=== PATIENT | female | born 1985 | race Native Hawaiian/Other Pacific Islander ===

== ENCOUNTER 2020-01-20 03:58 | Outpatient (CLI) | payer OTHER ==
[2020-01-20 04:28] VITALS: BP 123/76
[2020-01-20] MEDS ORDERED: TERBUTALINE 1 MG/ML VIAL SUBQ ONE (04:53)
[2020-01-20 05:17] LABS: BILIRUBIN,URINE NEGATIVE (NEGATIVE); GLUCOSE, URINE (UA) NEGATIVE (NEGATIVE); KETONES,URINE (UA) NEGATIVE (NEGATIVE); LEUKOCYTE ESTERASE, URINE NEGATIVE (NEGATIVE); NITRITE,URINE NEGATIVE (NEGATIVE); OCCULT BLOOD,URINE NEGATIVE (NEGATIVE); PROTEIN,URINE NEGATIVE (NEGATIVE); UROBILINOGEN,URINE 0.2 (NORMAL) E.U./dL (NORMAL)
[2020-01-20 05:18] LABS: CLARITY,URINE CLEAR (CLEAR)
[2020-01-20] MEDS ORDERED: BETAMETHASONE 30 MG/5 ML VIAL IM ONE (05:59)
[2020-01-20] MEDS ORDERED: TERBUTALINE 2.5 MG TABLET PO ONE (07:00)
--- NOTE | 2020-01-20 11:21 | PREOP HISTORY & PHYSICAL ---
DATE OF SERVICE: 01/20/2020 Physician: Edwin Angel MD IDENTIFICATION: Patient is a 34-year-old. She is 4, para 2, and ectopic 1. She is currently due 02/22/2019. This was confirmed by LMP as well as ultrasound at 20 weeks. This makes her 35 weeks and 1 day. CHIEF COMPLAINT: Contraction. HISTORY OF PRESENT ILLNESS: Patient developed contractions at roughly 2 o'clock this morning. She called the answering service and presented here at 4 o'clock. She has a history of having had a delivery at 36 weeks in the past. She has also had a section with her next child for breech presentation. She denies spontaneous rupture of membranes. She has not had any intercourse for the last greater than 24 hours. She denies any trauma or any other conditions at this time. OB history positive for an abnormal 50 gram Glucola but a normal 3-hour GTT. A- positive, antibody screen negative. She has tested negative for all STIs. She is rubella immune. PAST MEDICAL HISTORY: Patient denies any hypertensive, diabetic, or cardiac disease. SURGICAL HISTORY: Positive for a section as well as an ectopic . ALLERGIES: NONE KNOWN. CURRENT MEDICATIONS: vitamins. HABITS: Patient denies use of alcohol, tobacco, or street or addictive drugs. SOCIAL HISTORY: The patient is and is active duty [employer]. FAMILY HISTORY: Positive for cancer in maternal grandmother, heart attack in maternal grandfather, and a CVA in maternal grandfather. PHYSICAL EXAMINATION GENERAL: Patient is a well-developed, well-nourished [place] female. She is in no acute distress. She has noted contractions but was not breathing through them at all at this time. VITAL SIGNS: Noted to be normal. HEENT/NECK: Pupils are equal and round. Extraocular muscles are intact. Thyroid is not palpably enlarged. HEART: Regular rate and rhythm without murmurs. LUNGS: Lung dobbins are clear without rales or wheezes. ABDOMEN: 36 cm in fundal height. PELVIC: The exam performed by the nurse shows the external os to be 2 cm but the internal os is closed. She is about 50% effaced. She has a well-healed Pfannenstiel incision. LABORATORY DATA: Her FFN is positive; however, her urine is negative. IMPRESSION 1. A 34-year-old G4, P2 female, previous section at 35 weeks and 1 day. 2. contractions. PLAN: Patient was administered subcutaneous terbutaline at 0.25 mg, and this appeared to cause her contractions to cease. Because of her gestational age and contractions with a history of delivery, we administered 12 mg of betamethasone. I have also written a prescription for terbutaline at 2.5 mg p.o. every 6 hours p.r.n. She has an appointment to see us on 02/01/2020; however, we will have her call and try and make an appointment sooner because of her complications. The patient has been cautioned that, should the contractions return with strength, she should return early. She is also informed because of her gestational age that most likely she would need to be transferred to the [facility] in [place], [place], for NICU capabilities. TD: 01/20/2020 07:08 EWA
[2020-01-21] MEDS ORDERED: BETAMETHASONE 30 MG/5 ML VIAL IM ONE (09:00)
== END 2020-01-20 07:12 | disposition home or self-care (01) ==
LOC: WFO 03:58 → FBP 04:02 → WFO 07:12
PROVIDERS: ATTEND Obstetrics & Gynecology
DX: O47.1 False labor at or after 37 completed weeks of gestation (principal); Z3A.35 35 weeks gestation of pregnancy
CPT/HCPCS: 81003; 82731; 96372; 99214; A9270; 59025; 81001; 87086

== ENCOUNTER 2020-01-21 09:22 | Outpatient (CLI) | payer OTHER ==
[2020-01-21] MEDS ORDERED: BETAMETHASONE 30 MG/5 ML VIAL IM ONE (09:39)
[2020-01-21 10:13] VITALS: BP 128/71
--- NOTE | 2020-02-06 12:11 | PROVIDER PROGRESS NOTE ---
- HPI Chief Complaint: Labor Current : Current EDU 02/23/20 Gestation 35 Weeks and 2 Days Vital Signs Temperature 36.5 C 01/21/20 10:11 Heart Rate 87 01/21/20 10:11 Respiratory Rate 18 01/21/20 10:11 Blood Pressure 128/71 01/21/20 10:11 Temperature 36.5 C 01/21/20 10:11 Heart Rate 87 01/21/20 10:11 Respiratory Rate 18 01/21/20 10:11 Blood Pressure 128/71 01/21/20 10:11 O2 Saturation - Procedures NST Procedure: NST Procedure Start Date 01/21/20 Start Time 09:37 Stop Time 10:14 Vibroacoustic Stimulation Used No Patient States Movement Yes Findings: 35 WEEKS, 2 DAYS CONTRACTIONS PRIOR C/S - Plan Plan: PT RECEIVED SECOND DOSE OF BETAMETHAZONE FOR LUNG MATURITY
== END 2020-01-21 10:40 | disposition home or self-care (01) ==
LOC: WFO 09:22 → FBP 09:25 → WFO 10:40
PROVIDERS: ATTEND Obstetrics & Gynecology
DX: O60.03 Preterm labor without delivery, third trimester (principal); Z3A.35 35 weeks gestation of pregnancy
CPT/HCPCS: 96372; 99212

== ENCOUNTER 2020-01-24 22:43 | Inpatient (IN) | payer OTHER ==
[2020-01-25] MEDS ORDERED: ceFAZolin 2 GM in SODIUM CHLORIDE 0.9% 100ML 100 ML IV ONE (00:07)
[2020-01-25] MEDS ORDERED: CITRIC ACID/SODIUM CITRATE 15 ML UDC PO ONE (00:10)
[2020-01-25] MEDS: LACTATED RINGERS 1,000 ML IV SCH ×2 (00:15→06:35)
--- NOTE | 2020-01-25 00:39 | ANESTHESIA ---
Pre-Anesthesia VS, & Labs - Diagnosis active labor, previous c/s - Procedure repeat c/s Vital Signs: Temp Pulse Resp BP Pulse Ox 37.5 C 103 H 18 128/87 H 99 01/25/20 00:14 01/25/20 00:14 01/25/20 00:14 01/25/20 00:14 01/24/20 23:02 Height 5 ft 2 in Weight (kg) 71.214 kg - NPO Other (2129) - Is Patient ?: Yes Home Medications and Allergies Active Medications Lactated Ringer's (Lr) 1,000 mls @ 125 mls/hr IV .Q8H DEVEN Last Admin: 01/25/20 00:15 Dose: 125 mls/hr Documented by: PNV, AZO Allergies/Adverse Reactions: Allergies Allergy/AdvReac Type Severity Reaction Status Date / Time No Known Drug Allergies Allergy Verified 01/20/20 06:15 Anes History & Medical History - Anesthetic History Anesthesia Complications: reports: No previous complications - Medical History Cardiovascular: reports: None Pulmonary: reports: None Gastrointestinal: reports: None Urinary: reports: None Neuro: reports: None Musculoskeletal: reports: None Endocrine/Autoimmune: reports: None Blood Disorders: reports: None Skin: reports: None Smoking Status: Former smoker Psychosocial: reports: No issues indicated - Surgical History Gynecologic: section, Other (Ectopic , s/p salpingectomy) Exam General: Alert, Oriented x3, Cooperative, No acute distress Dental: WNL Mouth Openin Fingerbreadth Neck Mobility: Normal Mallampati classification: II Mental/Cognitive Status: Alert/Oriented X3, Normal for patient Plan Anesthesia Type: Spinal Consent for Procedure(s) Verified and Reviewed: Yes Code Status: Attempt Resuscitation ASA classification: 2-Mild systemic disease Is this case an emergency?: Yes
[2020-01-25] MEDS ORDERED: ONDANSETRON 4 MG/2 ML VIAL IVP ONE (00:50)
[2020-01-25] MEDS ORDERED: KETOROLAC 30 MG/ML VIAL IVP ONE (00:50)
[2020-01-25] MEDS ORDERED: METHYLERGONOVINE 0.2 MG/ML VIAL ONE (00:54)
[2020-01-25] MEDS ORDERED: CARBOPROST TROMETHAMINE 250 MCG/ML AMP IM ONE (00:54)
[2020-01-25 01:41] LABS: BASOPHILS % (AUTO) 0.6 %; EOSINOPHILS % (AUTO) 2.6 %; HGB - HEMOGLOBIN 12.7 g/dL (12.0-16.0); MEAN CORPUSCULAR HEMOGLOBIN 27.5 pg (27.0-31.0); MEAN CORPUSCULAR VOLUME 85.9 fL (81.0-99.0); MEAN PLATELET VOLUME 10.6 fL (7.9-10.8); NEUTROPHILS % (AUTO) 51.7 %; PLT - PLATELET COUNT 191 10^3/uL (130-450); RED BLOOD COUNT 4.62 10^6/uL (4.20-5.40); RED CELL DISTRIBUTION WIDTH 14.6 % (12.0-15.0); WHITE BLOOD COUNT 11.9 x10^3/uL (4.8-10.8)
[2020-01-25 01:43] LABS: ABNORMAL LYMPHS % (MANUAL) 0 %; BAND NEUTROPHILS % (MANUAL) 0 %
[2020-01-25 01:45] LABS: EOSINOPHILS # (MANUAL) 0.2 10^3/uL (0-0.7); LYMPHOCYTES # (MANUAL) 4.5 10^3/uL (1.5-3.5); LYMPHOCYTES % (MANUAL) 38 %; MONOCYTES # (MANUAL) 1.2 10^3/uL (0.0-1.0); MYELOCYTES % (MANUAL) 7 %
[2020-01-25 01:46] LABS: DIFFERENTIAL COMMENT MANUAL DIFFERENTIAL; PLATELET ESTIMATE, MANUAL NORMAL (130-450,000) (NORMAL); RBC MORPHOLOGY (MULTIPLE) NORMAL APPEARANCE (NORMAL)
[2020-01-25] MEDS ORDERED: BUPIVACAINE 0.25%-EPI 1:200000 PF 30 ML VIAL ONE (02:02)
[2020-01-25] MEDS ORDERED: LACTATED RINGERS 1,000 ML IV ONE (02:28)
[2020-01-25] MEDS ORDERED: BUPIVACAINE 0.25%-EPI 1:200000 PF 30 ML VIAL SUBQ ONE (02:29)
[2020-01-25] MEDS ORDERED: SODIUM CHLORIDE FLUSH 0.9% 10 ML SYRINGE IVP PRN (02:30)
[2020-01-25] MEDS ORDERED: ONDANSETRON 4 MG/2 ML VIAL IVP PRN ×3 (02:30→03:46)
[2020-01-25] MEDS ORDERED: diphenhydrAMINE 25 MG CAPSULE PO PRN (02:30)
--- NOTE | 2020-01-25 02:36 | OPERATIVE REPORT ---
Operative Report - General Admit Date: 01/25/20 Procedure Date: 01/25/20 Planned Procedure: RLTC/S Pre-Op Diagnosis: 35 6/7 weeks, prior C/S Active labor Procedure Performed: RLTC/S - Procedure Note Primary Surgeon: Edwin Angel MD Secondary Surgeon: Paty ROJAS Anesthesia Provider: Mil Haddad CRNA Anesthesia Technique: Local, Spinal Pathology: Placenta IV Fluids (mL): 1,000 Estimated Blood Loss (mL): 700 Urine Output (mL): 100 Complications: none
[2020-01-25] MEDS ORDERED: MORPHINE 2 MG/ML CARPUJECT IVP PRN ×2 (02:37→03:53)
[2020-01-25] MEDS ORDERED: ATROPINE ABBOJECT 1 MG/10 ML SYRINGE IVP PRN (02:37)
[2020-01-25] MEDS ORDERED: HYDROmorphone 0.5 MG/0.5 ML SYRINGE IVP PRN (02:37)
[2020-01-25] MEDS ORDERED: fentaNYL 100 MCG/2 ML VIAL IVP PRN (02:37)
[2020-01-25] MEDS ORDERED: NALOXONE 0.4 MG/ML VIAL IVP PRN (02:37)
--- NOTE | 2020-01-25 02:37 | ANESTHESIA POST OP EVALUATION ---
Anesthesia Post Eval - Post Anesthesia Eval Vitals: Last Vital Signs Temp 37.5 C 01/25/20 00:14 Pulse 103 H 01/25/20 00:14 Resp 18 01/25/20 00:14 BP 128/87 H 01/25/20 00:14 Pulse Ox 99 01/24/20 23:02 CV Function Including HR & BP: positive: Stable Pain Control: positive: Satisfactory Nausea & Vomiting: positive: Negative Mental Status: positive: Baseline Respiratory Status: Airway Patent Hydration Status: Satisfactory Anesthesia Complications: positive: None
[2020-01-25] MEDS ORDERED: LACTATED RINGERS 1,000 ML IV SCH ×2 (03:00)
[2020-01-25] MEDS ORDERED: NALBUPHINE 10 MG/ML AMP IVP PRN (03:47)
[2020-01-25 05:58] LABS: BASOPHILS # (AUTO) 0.1 10^3/uL (0.0-0.1); BASOPHILS % (AUTO) 0.5 %; EOSINOPHILS # (AUTO) 0.3 10^3/uL (0.0-0.7); EOSINOPHILS % (AUTO) 1.9 %; HGB - HEMOGLOBIN 11.1 g/dL (12.0-16.0); LYMPHOCYTES # (AUTO) 2.8 10^3/uL (1.5-3.5); LYMPHOCYTES % (AUTO) 15.7 %; MEAN CORPUSCULAR HEMOGLOBIN 28.2 pg (27.0-31.0); MEAN CORPUSCULAR HGB CONC 32.5 g/dL (32.0-36.0); MEAN CORPUSCULAR VOLUME 86.8 fL (81.0-99.0); MEAN PLATELET VOLUME 10.4 fL (7.9-10.8); MONOCYTES # (AUTO) 1.3 10^3/uL (0.0-1.0); MONOCYTES % (AUTO) 7.3 %; NEUTROPHILS # (AUTO) 12.9 10^3/uL (1.5-6.6); NEUTROPHILS % (AUTO) 72.5 %; PLT - PLATELET COUNT 158 10^3/uL (130-450); RED BLOOD COUNT 3.94 10^6/uL (4.20-5.40); RED CELL DISTRIBUTION WIDTH 14.6 % (12.0-15.0); WHITE BLOOD COUNT 17.8 x10^3/uL (4.8-10.8)
--- NOTE | 2020-01-25 06:47 | OPERATIVE REPORT ---
DATE OF SERVICE: 01/25/2020 Physician: Edwin Angel MD PREOPERATIVE DIAGNOSES 1. 35 weeks 6 days. 2. Previous section. 3. Active labor. POSTOPERATIVE DIAGNOSES 1. 35 weeks 6 days. 2. Previous section. 3. Active labor. PROCEDURE PERFORMED: Repeat low transverse section. SURGEON: Edwin Angel MD. CLINIC PHYSICIAN DIRECTOR: PRICILA Jc. ANESTHESIA PROVIDER: Cheryl Cross CRNA. ANESTHETIC: Spinal with local. IV FLUIDS: 1000 mL ESTIMATED BLOOD LOSS: 700 mL URINE OUTPUT: 100 mL FINDINGS: Upon entering the abdominal cavity, a live male infant with Apgars 8 and 9 was encountered in vertex presentation. The amniotic fluids were clear. PROCEDURE: Following adequate spinal anesthesia, patient was placed in the supine position with a roll under the right hip. Morales catheter was placed under sterile conditions. At this point, she was prepped and draped in the usual fashion. A timeout was done at this time in which concerns were addressed. The patient had a previous vertical incision, which was low in nature. A Pfannenstiel incision was accomplished using a #10 blade and electrocautery. The fascia was incised transversely and then spread laterally with the Willis scissors. At this point, the fascia was bluntly and sharply dissected from the rectus abdominis in the midline. The peritoneum was entered high. Care was taken to avoid any injury to bowel or bladder. At this point, a bladder flap was developed using the Metzenbaum scissors and blunt dissection. A low transverse uterine incision was accomplished using a #10 blade, bandage scissors and finger spread technique. The head of the was lifted out of the pelvis. Clear amniotic fluid was encountered. The infant was delivered without difficulty. The oral and nasopharynx were bulb suctioned. The cord was doubly clamped and divided, and the infant was handed to the harness tier who was standing by. At this point, the uterus was exteriorized. The lower portion of the incision was grasped with ring forceps and the placenta was manually delivered. This was sent for pathologic evaluation. The internal portion of the uterus was cleansed with a moist lap. The incision was closed using running locking suture of 0 Vicryl with an imbricating layer of 0 Vicryl. The cul-de-sac was suctioned of any clot and estimated blood count was made at that time. At this point, the pelvis was irrigated and no further blood was noted in the cul-de-sac. The uterus was delivered back in abdominal cavity. The gutters were irrigated bilaterally. The wound was inspected. There is no evidence of any bleeding. The peritoneum was closed using 2-0 Vicryl and the rectus was reapproximated with 0 Vicryl. The incision itself closed using looped PDS and the subcutaneous tissue was closed utilizing 2-0 Vicryl. The incision itself was closed using 4- 0 Monocryl. A wound VAC was then placed without difficulty and the uterus was expressed. During this procedure, business objects consultant Anna Friend was instrumental in providing retraction, suture cutting as well as fundal pressure to deliver the . TD: 01/25/2020 02:46 EWA
[2020-01-25] MEDS: ACETAMINOPHEN 500 MG TABLET PO SCH ×2 (08:05→16:33)
[2020-01-25] MEDS: DOCUSATE SODIUM 100 MG CAPSULE PO SCH ×2 (08:05→19:54)
[2020-01-25] MEDS: SIMETHICONE CHEW 80 MG TABLET PO SCH ×3 (08:05→19:54)
[2020-01-25] MEDS: KETOROLAC 30 MG/ML VIAL IVP SCH ×2 (08:05→13:56)
--- NOTE | 2020-01-25 08:40 | PROVIDER PROGRESS NOTE ---
Subjective - General Admit Date: 01/25/20 Procedure Date: 01/25/20 Post Op Days: 0 Procedure Performed: RLTC?S - Review of Systems Wound/Incisions: positive: Dressing dry and intact General: positive: No symptoms (Pain 7/10, moving easly coversing in full sentences. states she has good pain control.) HEENT: positive: No symptoms Pulmonary: positive: No symptoms Cardiovascular: positive: No symptoms Gastrointestinal: negative: Flatus Objective - Patient Data Reviewed Vital Signs: Yes Vital Signs: Vital Signs x48h Temp Pulse Pulse Resp BP BP Pulse Ox 01/25/20 07:26 37 C 81 20 103/49 L 98 01/25/20 06:38 68 16 104/52 L 97 01/25/20 05:29 37.2 C 86 16 97/51 L 98 01/25/20 04:50 36.8 C 77 16 98/49 L 97 01/25/20 04:20 73 16 105/58 L 97 01/25/20 03:45 79 16 118/64 97 01/25/20 03:30 73 16 114/75 99 01/25/20 03:15 83 16 108/63 98 01/25/20 03:00 36.7 C 78 16 114/56 L 98 01/25/20 02:50 37 C 74 19 125/71 100 01/25/20 02:37 37.6 C H 82 19 123/62 100 01/25/20 02:32 37.6 C H 75 23 116/66 99 01/25/20 02:27 37.5 C 79 18 116/82 H 99 01/25/20 02:22 37.5 C 85 12 130/59 L 100 Weight: Weight 01/23/20 01/24/20 01/25/20 23:59 23:59 23:59 Weight (kg) 71.486 kg 71.214 kg Intake & Output: Intake and Output Totals x24h 01/23/20 01/24/20 01/25/20 23:59 23:59 23:59 Intake Total 791.667 Output Total 195 Balance 596.667 - Lab Results Lab Results: 01/25/20 05:50 Other Lab Results: Lab Results x24hrs 01/25/20 01/25/20 01/25/20 Range/Units 23:45 05:50 00:30 WBC Cancelled 17.8 H (4.8-10.8) x10^3/uL Corrected WBC Cancelled RBC Cancelled 3.94 L (4.20-5.40) 10^6/uL Hgb Cancelled 11.1 L (12.0-16.0) g/dL Hct Cancelled 34.2 L (37.0-47.0) % MCV Cancelled 86.8 (81.0-99.0) fL MCH Cancelled 28.2 (27.0-31.0) pg MCHC Cancelled 32.5 (32.0-36.0) g/dL RDW Cancelled 14.6 (12.0-15.0) % Plt Count Cancelled 158 (130-450) 10^3/uL MPV Cancelled 10.4 (7.9-10.8) fL Neut # (Auto) Cancelled 12.9 H Lymph # (Auto) Cancelled 2.8 [place] # (Auto) Cancelled 1.3 H Eos # (Auto) Cancelled 0.3 Baso # (Auto) Cancelled 0.1 Absolute Nucleated RBC Cancelled 0.00 Total Counted Cancelled Band Neuts % (Manual) Cancelled (0 - 10) % Reactive Lymphs % (Man) Cancelled Abnorm Lymph % (Manual) Cancelled % Metamyelocytes % Cancelled Myelocytes % Cancelled ( - 0) % Promyelocytes % Cancelled Blast Cells % Cancelled Plasma Cell % (Manual) Cancelled Other Cells % Cancelled Nucleated RBC % Cancelled 0.0 Neutrophils # (Manual) Cancelled (1.5-6.6) 10^3/uL Lymphocytes # (Manual) Cancelled (1.5-3.5) 10^3/uL Monocytes # (Manual) Cancelled (0.0-1.0) 10^3/uL Eosinophils # (Manual) Cancelled (0-0.7) 10^3/uL Basophils # (Manual) Cancelled (0-0.1) 10^3/uL Nucleated RBCs Cancelled Differential Comment Cancelled Manual Slide Review Cancelled WBC Morphology Cancelled Platelet Estimate Cancelled (NORMAL) Platelet Morphology Cancelled RBC Morph Micro Appear Cancelled (NORMAL) Slides for Path Review Cancelled Blood Type A POSITIVE Blood Type Recheck Antibody Screen NEGATIVE 08/20/20 08/20/20 Range/Units 23:45 23:45 WBC 11.9 H (4.8-10.8) x10^3/uL Corrected WBC RBC 4.62 (4.20-5.40) 10^6/uL Hgb 12.7 (12.0-16.0) g/dL Hct 39.7 (37.0-47.0) % MCV 85.9 (81.0-99.0) fL MCH 27.5 (27.0-31.0) pg MCHC 32.0 (32.0-36.0) g/dL RDW 14.6 (12.0-15.0) % Plt Count 191 (130-450) 10^3/uL MPV 10.6 (7.9-10.8) fL Neut # (Auto) Not Reportable Lymph # (Auto) Not Reportable [place] # (Auto) Not Reportable Eos # (Auto) Not Reportable Baso # (Auto) Not Reportable Absolute Nucleated RBC Not Reportable Total Counted 100 Band Neuts % (Manual) 0 (0 - 10) % Reactive Lymphs % (Man) Abnorm Lymph % (Manual) 0 % Metamyelocytes % Myelocytes % 7 H ( - 0) % Promyelocytes % Blast Cells % Plasma Cell % (Manual) Other Cells % Nucleated RBC % Not Reportable Neutrophils # (Manual) 5.1 (1.5-6.6) 10^3/uL Lymphocytes # (Manual) 4.5 H (1.5-3.5) 10^3/uL Monocytes # (Manual) 1.2 H (0.0-1.0) 10^3/uL Eosinophils # (Manual) 0.2 (0-0.7) 10^3/uL Basophils # (Manual) 0.0 (0-0.1) 10^3/uL Nucleated RBCs Differential Comment MANUAL DIFFERENTIAL Manual Slide Review WBC Morphology Platelet Estimate NORMAL (130-450,000) (NORMAL) Platelet Morphology RBC Morph Micro Appear NORMAL APPEARANCE (NORMAL) Slides for Path Review Blood Type Blood Type Recheck A POSITIVE Antibody Screen - Current Medications Current Medications: Current Medications Generic Name Dose Route Start Last Admin Trade Name Freq PRN Reason Stop Dose Admin Acetaminophen 1,000 mg 01/25/20 03:00 01/25/20 08:05 Tylenol PO 1,000 mg Q8H DEVEN Administration Docusate Sodium 100 mg 01/25/20 09:00 01/25/20 08:05 Colace 100mg Capsule PO 100 mg BID DEVEN Administration Hydromorphone HCl 0.2 - 0.6 mg 01/25/20 02:37 01/25/20 05:17 Dilaudid Inj Syringe IVP 01/26/20 02:37 0.5 mg Q5M PRN Administration PAIN ([facility] Choice) Lactated Ringer's 1,000 mls @ 125 mls/hr 01/24/20 23:35 01/25/20 06:35 Lr IV 125 mls/hr .Q8H DEVEN Administration Ketorolac Tromethamine 30 mg 01/25/20 03:00 01/25/20 08:05 Toradol Inj (30mg) IVP 01/25/20 21:01 30 mg Q6H DEVEN Administration Simethicone 80 mg 01/25/20 06:00 01/25/20 08:05 Mylicon PO 80 mg TID DEVEN Administration - Physical Exam Wound/Incisions: positive: Dressing dry and intact General Appearance: positive: No acute distress, Alert Respiratory: positive: Chest non-tender, No respiratory distress, Breath sounds nml Cardiovascular: positive: Regular rate & rhythm, No murmur, No gallop Abdomen: positive: Non-tender Back: negative: CVA tenderness (R), CVA tenderness (L) Skin: positive: Color nml, No rash, Warm, Dry Impression/Plan - Problem List Problem List: POD#0 Good pain control wang Chambers to see me in my absence
[2020-01-25] MEDS ORDERED: SODIUM CHLORIDE FLUSH 0.9% 10 ML SYRINGE IVP SCH (09:00)
[2020-01-25] MEDS: oxyCODONE 5 MG TABLET PO PRN (10:15)
[2020-01-25] MEDS ORDERED: KETOROLAC 30 MG/ML VIAL IVP SCH (20:00)
[2020-01-26] MEDS: ACETAMINOPHEN 500 MG TABLET PO SCH ×3 (00:10→20:14)
[2020-01-26] MEDS: IBUPROFEN 600 MG TABLET PO SCH ×4 (01:53→20:15)
[2020-01-26] MEDS: DOCUSATE SODIUM 100 MG CAPSULE PO SCH ×2 (08:41→20:15)
[2020-01-26] MEDS: oxyCODONE 5 MG TABLET PO PRN (08:51)
--- NOTE | 2020-01-26 12:01 | PROVIDER PROGRESS NOTE ---
Subjective - Prog Note Date Prog Note Date: 01/26/20 Prog Note Time: 11:58 - Subjective Subjective: Patient is up and ambulating, tolerating po, and voiding. Pain is well managed with pain medications. Bf going well. Experienced mother. Objective - Vital Signs/Intake & Output Vital Signs: Vital Signs x48h Temp Pulse Resp BP Pulse Ox 01/26/20 08:00 98.1 F 98 18 97/70 98 Intake & Output: Intake & Output 01/23/20 01/24/20 01/25/20 01/26/20 23:59 23:59 23:59 23:59 Intake Total 1633.334 Output Total 1495 Balance 138.334 - Objective General Appearance: positive: No acute distress Neck: positive: Nml inspection Respiratory: positive: No respiratory distress Cardiovascular: positive: Regular rate & rhythm Abdomen: positive: Non-tender, Other (FF below umbi. Wound Vac in place) Back: positive: Nml inspection Skin: positive: Color nml Extremities: positive: Non-tender Neurologic/Psychiatric: positive: Oriented x3 - Lab Results Fish Bones: 01/25/20 05:50 Assessment/Plan - Problem List (1) deliv NOS-unsp Impression: POD#1 s/p rLTCS: Doing well post op Routine pp care Rh positive Anticipate DC home in am pending clearance of infant
[2020-01-26] MEDS: SIMETHICONE CHEW 80 MG TABLET PO SCH (20:14)
[2020-01-27] MEDS: ACETAMINOPHEN 500 MG TABLET PO SCH ×2 (04:37→12:36)
[2020-01-27] MEDS: IBUPROFEN 600 MG TABLET PO SCH ×2 (04:38→10:50)
[2020-01-27 05:51] LABS: HGB - HEMOGLOBIN 11.6 g/dL (12.0-16.0); MEAN CORPUSCULAR HEMOGLOBIN 28.4 pg (27.0-31.0); MEAN CORPUSCULAR HGB CONC 32.5 g/dL (32.0-36.0); MEAN CORPUSCULAR VOLUME 87.5 fL (81.0-99.0); MEAN PLATELET VOLUME 9.9 fL (7.9-10.8); RED BLOOD COUNT 4.08 10^6/uL (4.20-5.40); RED CELL DISTRIBUTION WIDTH 14.6 % (12.0-15.0); WHITE BLOOD COUNT 13.7 x10^3/uL (4.8-10.8)
[2020-01-27 08:04] VITALS: BP 114/80
[2020-01-27] MEDS: SIMETHICONE CHEW 80 MG TABLET PO SCH (08:50)
[2020-01-27] MEDS: DOCUSATE SODIUM 100 MG CAPSULE PO SCH (08:50)
[2020-01-27] MEDS: oxyCODONE 5 MG TABLET PO PRN (10:49)
--- NOTE | 2020-01-27 11:40 | Discharge Plan ---
Discharge Plan Problem Reviewed?: Yes Disposition: 01 Home, Self Care Diet: Regular Activity Restrictions: Additional Comments (Nothing in the vagina for 6 weeks: No intercourse, tampons, douching Call for: -Fever greater than 100.5 - Pain that does not improve with pain medication -Heavy bleeding in which you are soaking a pad an hour for 2 hours in a row - If incision becomes hot, hard, red, starts to open) Shower Restrictions: No (OK to shower but no tub baths, swimming, or hot tubs for 4 weeks) Driving Restrictions: Yes (No driving while taking narcotics. ) No Smoking: If you smoke, Please STOP! Call for help. Follow-up with: Edwin Angel MD [Provider Admit Priv/Credential] -
--- NOTE | 2020-01-27 11:51 | PROVIDER PROGRESS NOTE ---
Subjective - Prog Note Date Prog Note Date: 01/27/20 Prog Note Time: 11:49 - Subjective Subjective: Patient is up and ambulating, tolerating po, and voiding. Pain is well managed with pain medications. Objective - Vital Signs/Intake & Output Vital Signs: Vital Signs x48h Temp Pulse Resp BP Pulse Ox 01/27/20 08:03 98.4 F 77 18 114/80 100 Intake & Output: Intake & Output 01/24/20 01/25/20 01/26/20 01/27/20 23:59 23:59 23:59 23:59 Intake Total 1633.334 Output Total 1495 Balance 138.334 - Objective General Appearance: positive: No acute distress Neck: positive: Nml inspection Respiratory: positive: No respiratory distress Cardiovascular: positive: Regular rate & rhythm Abdomen: positive: Non-tender, Other (FF below umbi. Wound vac in place. CDI) Skin: positive: Color nml, No rash, Warm Extremities: positive: Non-tender, No pedal edema Neurologic/Psychiatric: positive: Oriented x3 - Lab Results Fish Bones: 01/27/20 05:42 Other Labs: Lab Results x24hrs 01/27/20 Range/Units 05:42 WBC 13.7 H (4.8-10.8) x10^3/uL RBC 4.08 L (4.20-5.40) 10^6/uL Hgb 11.6 L (12.0-16.0) g/dL Hct 35.7 L (37.0-47.0) % MCV 87.5 (81.0-99.0) fL MCH 28.4 (27.0-31.0) pg MCHC 32.5 (32.0-36.0) g/dL RDW 14.6 (12.0-15.0) % Plt Count 160 (130-450) 10^3/uL MPV 9.9 (7.9-10.8) fL Assessment/Plan - Problem List (1) deliv NOS-unsp Impression: POD#2 s/p rLTCS. Doing well Meeting goals for discharge Routine DC instructions given.
--- NOTE | 2020-01-27 11:53 | DISCHARGE SUMMARY ---
"Discharge Summary Admit Date: 01/24/20 Discharge Date: 01/27/20 Discharging Provider: Trish Discharge Disposition: 01 Home, Self Care - DIAGNOSES Admission Diagnoses: IUP at 35+6 wga labor/Advacned cervical dilation Hx of prior Discharge Diagnoses with Status of Each Condition: same and delivery of late gestation - HPI History of Present Illness: Patient is a 34 yo at 35+5 wga who presented late on 01/24/2020 with contractions. Initial SVE by senior coldfusion developer was 4/70/-1 stations. Repeat exam by Dr. Angel showed her to be at 5 cm cervical dilation. She was admitted and brought to the OR for repeat in the setting of late labor. - CONSULTS | PROCEDURES Procedures: Repeat low transverse - HOSPITAL COURSE Hospital Course: Patient presented on 01/24/2020 at 4 cm dilated at 35+5 wga. She was reassess and found to be 5 cm dilated. Given history of prior , patient proceeded to OR for unscheduled delivery via repeat . EBL 700 mL. Procedure was uncomplicated and well tolerated. Post op course was uncomplicated. By POD#2, patient was meeting goals for discharge and was discharged to home. - ALLERGIES Allergies/Adverse Reactions: Allergies Allergy/AdvReac Type Severity Reaction Status Date / Time No Known Drug Allergies Allergy Verified 01/20/20 06:15 - MEDICATIONS Home Medications: Ambulatory Orders Medication Instructions Recorded Confirmed Acetaminophen [Tylenol Extra 500 - 1,000 mg PO Q8H PRN #90 01/27/20 Strength] tablet Docusate Sodium 100 - 200 mg PO BID PRN #60 capsule 01/27/20 Ibuprofen [Motrin] 600 mg PO Q6H PRN #90 tab 01/27/20 oxyCODONE [Roxicodone] 5 mg PO Q4H PRN #24 tablet 01/27/20 - LABS Result Diagrams: 01/27/20 05:42 - FOLLOW UP Follow Up: 1 week for incision check/wound vac removal. - TIME SPENT Time Spent in Discharge (Minutes): 30"
--- NOTE | 2020-01-27 13:43 | Labor Flowsheet ---
Labor Flowsheet Datetime Report Generated by CPN: 01/27/2020 13:43 Datetime: 01/25/2020 10:28 Pulse: 83 SpO2 (%): 100 Datetime: 01/25/2020 10:26 VITAL SIGNS NBP Sys/Che/Mean (mmHg): 140 : 79 : 90
== END 2020-01-27 13:15 | disposition home or self-care (01) | DRG 788 ==
LOC: WFO 22:43 → FBP 22:46 → WFO 01-25 00:02 → FBP 01-25 00:03
PROVIDERS: ADMIT Obstetrics & Gynecology; ATTEND Obstetrics & Gynecology
PROC: 10D00Z1 Extraction of Products of Conception, Low, Open Approach (ICD-10-PCS; principal; 2020-01-25 00:35)
DX: O60.14X0 Preterm labor third trimester with preterm delivery third trimester, not applicable or unspecified (principal); O34.211 Maternal care for low transverse scar from previous cesarean delivery; N85.8 Other specified noninflammatory disorders of uterus; Z3A.35 35 weeks gestation of pregnancy; Z37.0 Single live birth
CPT/HCPCS: 36415; 85025; 85027; 86850; 86900; 86901; 87491; 87591; 87661; 87797; 99213; A9270; J1170; J2210; J7120

== ENCOUNTER 2020-06-30 08:00 | Outpatient (CLI) | payer OTHER ==
[2020-06-30 16:28] LABS: MUDS CUTOFF CONCENTRATIONS CUTOFF CONC BELOW:
[2020-06-30 16:32] LABS: BILIRUBIN,URINE NEGATIVE (NEGATIVE); GLUCOSE, URINE (UA) NEGATIVE (NEGATIVE); KETONES,URINE (UA) NEGATIVE (NEGATIVE); LEUKOCYTE ESTERASE, URINE NEGATIVE (NEGATIVE); NITRITE,URINE NEGATIVE (NEGATIVE); OCCULT BLOOD,URINE NEGATIVE (NEGATIVE); PROTEIN,URINE NEGATIVE (NEGATIVE); UROBILINOGEN,URINE 0.2 (NORMAL) E.U./dL (NORMAL)
[2020-06-30 16:42] LABS: CLARITY,URINE CLEAR (CLEAR); RBC,URINE None Seen /HPF (0-5)
[2020-06-30 16:43] LABS: BACTERIA,URINE Rare /HPF (None Seen); SQUAMOUS EPITHELIAL CELL,UR MANY Squamous (<= Few)
[2020-06-30 17:17] LABS: AMPHETAMINE SCREEN,URINE NEGATIVE (NEGATIVE); BENZODIAZEPINES SCREEN, URINE NEGATIVE (NEGATIVE); COCAINE SCREEN URINE NEGATIVE (NEGATIVE); METHADONE SCREEN, URINE NEGATIVE (NEGATIVE); METHAMPHETAMINES SCREEN, URINE NEGATIVE (NEGATIVE); OPIATE SCREEN, URINE NEGATIVE (NEGATIVE); OXYCODONE SCREEN, URINE NEGATIVE (NEGATIVE); PROPOXYPHENE SCREEN, URINE NEGATIVE (NEGATIVE); TRICYCLIC ANTIDEPRESSANT,URINE NEGATIVE (NEGATIVE)
== END 2020-06-30 23:59 | disposition home or self-care (01) ==
LOC: LAB.R 08:00
PROVIDERS: ATTEND Advanced Practice Midwife
DX: O09.90 Supervision of high risk pregnancy, unspecified, unspecified trimester (principal)
CPT/HCPCS: 80306; 81001; 87086

== ENCOUNTER 2020-07-17 15:24 | Outpatient (CLI) | payer OTHER ==
--- NOTE | 2020-07-17 17:20 | Ultrasound Report ---
PROCEDURE: OB First Trimester w/TV INDICATIONS: SUPERVISION OF HIGH RISK OUTSIDE/PRIOR DATING DATA: Last menstrual period (LMP): 05/07/2020. LMP-based estimated date of delivery (PURVI): 02/21/2021. First dating scan (date and location): 07/17/2020. Estimated date of delivery (PURVI) from first dating scan: 03/04/2021. TECHNIQUE: Real-time scanning was performed of the fetus and maternal pelvic organs, with image documentation. Endovaginal scanning was also performed to better visualize the fetus and maternal ovaries. COMPARISON: None. FINDINGS: Embryo: There is a single intrauterine gestation with an estimated sonographic gestational age of ap proximately 7 weeks and 1 day based off crown-rump length measurement of 1.05 cm. By mean gestational sac diameter of 1.95 cm, intrauterine gestation measures approximately 6 weeks and 6 days. cardiac pulsations were noted during real-time imaging. However, definitive heart rate no t well visualized or measured. Measured heart rate was approximately 73 bpm. However, this may be the mother's background heart rate. There is a oval yolk sac which measures large at approximately 0.65 cm. No perigestational hemorrhage . Measurement variability in dating: +/- 4 weeks by LMP, +/- 7 days by mean sac diameter (use before 6 weeks gestation if crown-rump length not able to be measured), +/- 5 days by crown-rump length (6-12 weeks gestation). Maternal organs: Ovaries are unremarkable without suspicious ovarian/adnexal masses. Bilateral kidne ys are normal in appearance. No free fluid. IMPRESSION: Single living intrauterine gestation with estimated sonographic gestational age of approximately 7 we eks and 1 day based off crown-rump length measurement. Estimated date of delivery is approximately . It was difficult to obtain a heart rate although cardiac pulsations were visuali zed during real-time imaging. The measured heart rate was approximately 73 bpm. Additionally, t here is a large yolk sac which otherwise appears normal in morphology. Recommend close clinical surveillance with consideration of serial quantitative hCG measurements to d ocument expected rate of rise. Short interval follow-up imaging as needed. Reviewed by: Rafiq Tejada MD on 07/17/2020 5:19 PM PST Approved by: Rafiq Tejada MD on 07/17/2020 5:19 PM [facility] Station ID: [id number]
== END 2020-07-17 15:25 | disposition home or self-care (01) ==
LOC: DI 15:24
PROVIDERS: ATTEND Advanced Practice Midwife
DX: O09.91 Supervision of high risk pregnancy, unspecified, first trimester (principal); Z3A.01 Less than 8 weeks gestation of pregnancy

== ENCOUNTER 2020-07-18 08:00 | Outpatient (CLI) | payer OTHER | END 2020-07-18 23:59 | disposition home or self-care (01) | LOC: LAB.WCP 08:00 | PROVIDERS: ATTEND Nurse Practitioner Obstetrics & Gynecology | DX: O36.80X0 Pregnancy with inconclusive fetal viability, not applicable or unspecified (principal); Z3A.00 Weeks of gestation of pregnancy not specified | CPT/HCPCS: 36415; 84702 ==

== ENCOUNTER 2020-07-19 13:13 | Outpatient (CLI) | payer OTHER | END 2020-07-19 13:14 | disposition home or self-care (01) | LOC: LAB.N 13:13 | PROVIDERS: ATTEND Nurse Practitioner Obstetrics & Gynecology | DX: Z53.9 Procedure and treatment not carried out, unspecified reason (principal) ==

== ENCOUNTER 2020-07-19 13:18 | Outpatient (CLI) | payer OTHER | END 2020-07-19 13:19 | disposition home or self-care (01) | LOC: LAB.N 13:18 | PROVIDERS: ATTEND Nurse Practitioner Obstetrics & Gynecology | DX: O36.80X0 Pregnancy with inconclusive fetal viability, not applicable or unspecified (principal); Z3A.00 Weeks of gestation of pregnancy not specified | CPT/HCPCS: 36415; 84702 ==

== ENCOUNTER 2020-07-21 13:28 | Outpatient (CLI) | payer OTHER | END 2020-07-21 13:29 | disposition home or self-care (01) | LOC: LAB.N 13:28 | PROVIDERS: ATTEND Nurse Practitioner Obstetrics & Gynecology | DX: O36.80X0 Pregnancy with inconclusive fetal viability, not applicable or unspecified (principal) | CPT/HCPCS: 36415; 84702 ==